=== PATIENT | male | born 1985 | race Caucasian/White ===

== ENCOUNTER 2019-09-13 11:21 | Emergency (ER) | payer SELFPAY ==
[2019-09-13 11:43] VITALS: BP 129/89
--- NOTE | 2019-09-13 12:09 | UC ---
Laceration HPI - HPI Summary HPI Summary: Patient 34yo male presenting with laceration of right index finger that occurred this morning at 1030 when a glass flask broke in his hand. States it bled for about 10 minutes and stopped. Denies pain. Denies decreased ROM. Denies numbness and tingling. UTD on tetanus. - History Of Current Complaint Chief Complaint: UCLaceration Stated Complaint: CUT FINGER Hx Obtained From: Patient Pain Intensity: 2 Pain Scale Used: 0-10 Numeric - Allergies/Home Medications Allergies/Adverse Reactions: Allergies Allergy/AdvReac Type Severity Reaction Status Date / Time No Known Allergies Allergy Verified 09/13/19 11:40 Home Medications: Home Medications Lisinopril TAB* [Prinivil TAB 10 MG*] 1 tab PO DAILY 09/13/19 [History Confirmed 09/13/19] PMH/Surg Hx/FS Hx/Imm Hx Previously Healthy: Yes - Surgical History Surgical History: None - Family History Known Family History: Positive: Non-Contributory - Social History Alcohol Use: Occasionally Substance Use Type: None Smoking Status (MU): Never Smoked Tobacco Review of Systems All Other Systems Reviewed And Are Negative: No Constitutional: Positive: Negative Skin: Positive: Other - right finger laceration ENT: Positive: Negative Respiratory: Positive: Negative Cardiovascular: Positive: Negative Gastrointestinal: Positive: Negative Musculoskeletal: Positive: Negative Neurological/Mental Status: Positive: Negative Physical Exam - Summary Physical Exam Summary: Vital Signs Reviewed: Yes A+Ox3, no distress Eyes: Conjunctiva Clear ENT: Hearing grossly normal neck: supple Respiratory: Positive: No respiratory distress, No accessory muscle use Cardiovascular: skin color reflect adequate perfusion Musculoskeletal Exam: PANTOJA x 4 without difficulty, right index finger ROM intact Neurological: Positive: Alert, ambulatory without difficulty, sensation grossly intact Psychological: Positive: age appropriate behavior Skin: Positive: ~1cm superficial nonbleeding closed laceration with skin well approximated noted on right index fingertip Vital Signs: Initial Vital Signs Temp 97.8 F 09/13/19 11:37 Pulse 64 09/13/19 11:37 Resp 15 09/13/19 11:37 BP 129/89 09/13/19 11:37 Pulse Ox 100 09/13/19 11:37 Laceration Course/Dx - Course/Dx Course Of Treatment: Wound was cleansed. Laceration did not require repair. Patient received ointment and bandage. I educated on care for laceration and instructed to monitor for s/s of infection. Patient voiced understanding and agreed with treatment plan. - Diagnosis Provider Diagnosis: Superficial laceration Discharge ED - Sign-Out/Discharge Documenting (check all that apply): Patient Departure All imaging exams completed and their final reports reviewed: No Studies - Discharge Plan Condition: Stable Disposition: HOME Patient Education Materials: Laceration (ED) Referrals: [facility] [Outside] - If Needed Additional Instructions: Your laceration does not need any further treatment. Keep it clean and dry for the first 24-48 hours. You may take over the counter pain medications as directed for pain relief. Return or go to the emergency department if you notice any redness, swelling, fluid drainage, or fever. - Billing Disposition and Condition Condition: STABLE Disposition: Home
== END 2019-09-13 12:30 | disposition home or self-care (01) ==
LOC: UCEAST 11:21
DX: S61.210A Laceration without foreign body of right index finger without damage to nail, initial encounter (principal); W25.XXXA Contact with sharp glass, initial encounter; Y92.9 Unspecified place or not applicable
CPT/HCPCS: 99202; G0463